=== PATIENT | male | born 2005 | race Caucasian/White ===

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

== ENCOUNTER → 2023-05-07 12:40 | Outpatient (CLI) | payer OTHER, SELFPAY ==
--- NOTE | ~2023-05-07 | XR_ITS ---
XR finger 5th LT min 2V DATE: 05/07/2023 13:11 INDICATION: Injury TECHNIQUE: 4 views COMPARISON: None FINDINGS: Mild focal soft tissue swelling dorsally near the distal interphalangeal joint. There is alford ggestion of very subtle virtually nondisplaced and articular fracture of the dorsal base of the dista l phalanx, possibly recent. Recommend clinical correlation for point tenderness. Otherwise no fracture or dislocation, periosteal reaction or bone destruction is detected. IMPRESSION: Suspected subtle nondisplaced fracture of the dorsal base of the distal phalanx, possibly recent Reviewed, dictated and finalized at location A. IMPRESSION: Suspected subtle nondisplaced fracture of the dorsal base of the di stal phalanx, possibly recent
--- NOTE | ~2023-05-07 | XR_ITS ---
XR finger 4th LT min 2V DATE: 05/07/2023 13:12 INDICATION: Injury TECHNIQUE: 4 views COMPARISON: None FINDINGS: No fracture or dislocation, periosteal reaction or bone destruction. Joint spaces are prese rved. No erosive change. No radiopaque soft tissue foreign body or subcutaneous emphysema. IMPRESSION: Negative Reviewed, dictated and finalized at location A. IMPRESSION: Negative
== END ==
PROVIDERS: PCP Family Medicine; Visit Provider Family Medicine
DX: S69.90XA Unspecified injury of unspecified wrist, hand and finger(s), initial encounter (principal); X58.XXXA Exposure to other specified factors, initial encounter
CPT/HCPCS: 73140

== ENCOUNTER 2024-12-04 17:40 | Emergency (ER) | payer OTHER, SELFPAY ==
[2024-12-04 17:41] VITALS: BP 137/70; PULSE 56; RESP 16; TEMP 36.7; O2SAT 100
--- OUTSIDE RECORDS SUMMARY | 2024-12-04 17:42 | XMS_ITS | Clinical Summary ---
Author Organization [facility] Address [address] [place] [address] Care Team Providers Care Manager Fixed Income Name Role Phone Mic Parry MD Primary Care Provider [phone] Source Comments [facility],non-owned Affiliates and Associated Physician Practices is amultiple site organization consisting of ambulatory clinics and hospital sitesin [place], [place], [place] and [place]. This disclosure is being madepursuant to the Care Everywhere program and may not contain all information available regarding this patient. Last updated 18.[facility] Allergies Active Allergy Reactions Criticality Noted Date Comments Penicillins Urticaria Medium 02/20/2017 Medications * Be aware that medications may not be up to date on this document. Alwaysverify current medications with the patient. cetirizine (ZYRTEC) 10 MG tablet Take 10 mg by mouth once daily Active omeprazole (PRILOSEC) 10 MG capsule Take 10 mg by mouth daily before breakfast Active ibuprofen (MOTRIN) 400 MG tablet Take 1 tablet by mouth every 6 hours as needed for Pain 20 tablet 8 Active cyproheptadine (PERIACTIN) 4 MG tablet Take 1 tablet by mouth at bedtime 30 tablet 2 9 Active Immunizations Immunization Administration Dates Next Due INFLUENZA VACCINE, QUADR. 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 Gender Identity Not on file Sexual Orientation Not on file Last Filed Vital Signs Vital Sign Reading Time Taken Comments Blood Pressure 108/62 05/02/2018 10:17 AM CDT Pulse 64 05/02/2018 10:17 AM CDT Temperature 36.6 C (97.9 F) 05/02/2018 10:17 AM CDT Respiratory Rate 16 05/02/2018 10:17 AM CDT Oxygen Saturation 96% 02/11/2018 2:25 PM CDT Inhaled Oxygen Concentration - - Weight 67.3 kg (148 lb 5.9 oz) 05/02/2018 10:17 AM CDT Height 178.5 cm (5' 10.28 ) 05/02/2018 10:17 AM CDT Body Mass Index 21.12 05/02/2018 10:17 AM CDT Plan of Treatment Health Maintenance Due Date Last Done Comments HIV SCREENING 2018 HPV VACCINE (1 - Male 3-dose series) 2018 MENINGOCOCCAL (Group B) VACC INE SHARED DECISION-MAKING (1 of 2 - Standard) 2019 HEPATITIS C SCREENING 09/10/2021 DTAP/TDAP/TD VACCINES (1 - Tdap) 2022 HEPATITIS B VACCINE (1 of 3 - 19+ 3-dose series) 2022 COVID-19 VACCINE (1 - 2023-2 5 season) 2024 DEPRESSION SCREENING 08/17/2024 INFLUENZA VACCINE (Season Ended) 2025 07/02/20 17 ZOSTER VACCINE (1 of 2) 2053 HIB VACCINE Aged Out No longer eligi ble based on patient's age to complete this topic MENINGOCOCCAL GROUPS A/C/Y/W VACCINE Aged Out No longer eligible b ased on patient's age to complete this topic PNEUMOCOCCAL VACCINE Aged Out No long er eligible based on patient's age to complete this topic Insurance AETNA AETNA AETNA AETNA Care Teams Manager Fixed Income Relationship Specialty Start Date End Date Mic Parry MD PCP - General Family Medicine 02/20/17
--- OUTSIDE RECORDS SUMMARY | 2024-12-04 17:42 | XMS_ITS | Encounter Summary ---
Author Organization [facility] Address [address] [place] [address] Care Team Providers Care Filling Station Equipment Mechanic Name Role Phone Mic Parry MD Primary Care Provider [phone] Encounter Details Date Type Department Care Team (Late Contact [facility]) Description 02/03/2024 Lab Requisition [facility] - DermPath Lab [address] [place] [address] Cassandra Sanders MD [address] 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 Answer Date of Assessment Author No 02/11/2018 2:27 PM Jackie Escobedo RN * Is person blind or have serious difficulty seeing? Answer Date of Assessment Author No 02/11/2018 2:27 PM Jackie Escobedo RN * Does person have serious difficulty walking/climbing stairs? Answer Date of Assessment Author No 02/11/2018 2:27 PM Jackie Escobedo RN * Does person have difficulty dressing/bathing? Answer Date of Assessment Author No 02/11/2018 2:27 PM CDT Jackie Boone RN * Does person have difficulty doing errands alone? Answer Date of Assessment Author No 02/11/2018 2:27 PM CDT Jackie Boone RN documented as of this encounter Mental Status * Does person have difficulty concentrating/remembering/making decisions? Answer Entry Date Author No 02/11/2018 2:27 PM CDT Jackie Boone RN documented in this encounter Plan of Treatment Not on file documented as of this encounter Procedures Procedure Name Priority Date/Time Associated Diagnosis Comments DERMATOPATHOLOGY Routine 02/03/2024 11:0 1 AM CDT documented in this encounter Results * DERMATOPATHOLOGY (02/03/2024 11:01 AM CDT) Case Report Dermatopathology Report Case: [id number] Authorizing Provider: Cassandra Sanders MD Collected: 02/03/2024 11:01 AM Ordering Location: [facility] - Received: 02/03/2024 03:46 PM DermPath Lab Pathologist: Sofi Onofre MD Specimen: Skin, right neck 4 2:06 PM T DERMATOPATHOLOGY LABORATORY Final Diagnosis Specimen A. 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 The specimen consists of a 14x5x7,87k2i95 mm piece of skin. The specimen is serially sectioned and a electronics parts sales representative section is submitted in cassette 1. Jar 1. 4 2:06 PM CDT DERMATOPATHOLOGY LABORATORY Microscopic Description Specimen A. SKIN, right neck: Aggregates of basaloid (matrical) and shadow cells are surrounded by fibrosis and granulomatous inflammation. 4 2:06 PM CDT DERMATOPATHOLOGY LABORATORY Disclaimer An external and internal positive and negative controls are appropriate for the histochemical, immunohistochemical and immunofluorescence stain(s) in this case (if any), except where stated explicitly. The performance characteristics of the stain(s) cited in this report were developed and its performance characteristic determined by the Dermatopathology Laboratory at [facility], directed by Dr. Daniel Whitley. These tests need not be, and therefore are not, approved by the [place] Food and Drug Administration. The tests are used for clinical purposes. Billing Codes Specimen Charges Stain Charges 02226 1 4 2:06 PM CDT DERMATOPATHOLOGY LABORATORY Embedded Images 4 2:06 PM CDT DERMATOPATHOLOGY LABORATORY Pathology/Cytolo gy TISSUE SPECIMEN FROM SKIN / Unknown 02/03/2024 11:01 AM CDT 02/03/2024 3:46 PM CDT Cassandra Sanders MD LAB - PATHOLOGY/CYTOLOGY ORD ERABLES Final Result DERMATOPATHOLOGY LABORATORY [facility] - Department of Dermatology [facility] Special[facility] Medicine [address] [place] [address], [address] [phone] documented in this encounter Visit Diagnoses Not on filedocumented in this encounter Care Teams Filling Station Equipment Mechanic Relationship Specialty Start Date End Date Mic Parry MD PCP - General Family Medicine 02/20/17 documented as of this encounter
--- NOTE | 2024-12-04 18:14 | ED_ITS ---
HPI - General Adult General Chief complaint: Abdominal Pain Stated complaint: abd cramping Time Seen by Provider: 12/04/24 17:54 History of Present Illness HPI narrative: 19-year-old male presenting to the emergency department for evaluation for increased left upper quadrant abdominal pain secondary to having some alcohol last night. Patient does have a history of gastric issues which mother states he has had extensive workup previously. Patient states he does not take omeprazole or any gastric medications daily. Patient does admit to having at least 3 beers last night. Patient reports he has been having nausea vomiting and worsening upper abdominal pain. Patient denies any prior abdominal surgeries. Related Data Home Medications ?Medication ?Instructions ?Recorded ?Confirmed ?Last Taken ?Type Saccharomyces boulardii 250 mg 5,000 mmu cells PO DAILY 08/29/22 11/10/24 Unknown History capsule (Daily Probiotic (S. boulardii)) cholecalciferol (vitamin D3) 25 25 mcg PO DAILY 08/29/22 11/10/24 Unknown History mcg (1,000 unit) capsule magnesium 200 mg tablet 200 mg PO DAILY 08/29/22 11/10/24 Unknown History multivitamin 1 tablet PO DAILY 08/29/22 11/10/24 Unknown History ketoconazole 2 % topical cream applic topical 11/10/24 11/10/24 Unknown History Allergies Allergy/AdvReac Type Severity Reaction Status Date / Time Penicillins Allergy Intermediate Rash Verified 12/04/24 18:01 Review of Systems 2 Review of Systems: All systems reviewed & are unremarkable except as noted in HPI and below PMFSH Past Medical History Medical History Major depressive disorder, recurrent, in partial remission Patient denies medical problems Surgical History Surgical History [place] teeth removed summer 2021 Social History Social History Smoking status: Never smoker Alcohol intake: never Substance use: current Substance use type: marijuana Last use: Not very often Do You Feel Safe in your Home?: Yes Lack of Transportation: No Lack of Food: Never True Current Housing: I Have Housing Concerned About Future Housing: No Living arrangements: with family Occupation/Education: student Gender identity (if verbalized by the patient): Male Sexual Orientation (if Verbalized by the Patient): Straight or Heterosexual Exam 2 Narrative: APPEARANCE: Uncomfortable appearing, diaphoretic HEAD: normocephalic, atraumatic. EYES: PERRLA/EOMI, conjunctivae clear. NOSE: Normal no drainage EARS:TMS clear with good light reflex. THROAT: Pharynx clear, no exudate. NECK: Supple. No adenopathy, no masses. RESPIRATORY: Airway patent, respirations nonlabored. Clear to auscultation bilaterally, no rales, rhonchi, wheezing. CARDIOVASCULAR: Regular rate and rhythm without murmurs rubs or gallops. ABDOMINAL: Left upper quadrant abdominal pain MUSCULOSKELETAL: Moves all extremities. Strength/ROM intact, No edema, No calf tenderness. NEURO: Alert. Cranial nerves II through XII intact. Good gait. Good coordination SKIN: Warm, dry. Normal Color Course Vital Signs Vital signs: Vital Signs Temperature 98.1 F 12/04/24 17:41 Pulse Rate 56 L 12/04/24 17:41 Respiratory Rate 16 12/04/24 17:41 Blood Pressure 137/70 12/04/24 17:41 Pulse Oximetry 100 12/04/24 17:41 Oxygen Delivery Room Air 12/04/24 17:41 Temperature 98.1 F 12/04/24 17:41 Pulse Rate 57 L 12/04/24 19:33 Respiratory Rate 17 12/04/24 19:33 Blood Pressure 111/64 12/04/24 19:33 Pulse Oximetry 100 12/04/24 19:33 Oxygen Delivery Room Air 12/04/24 17:[address] [facility] Narrative Medical decision making narrative: 19-year-old male presents emergency department for evaluation for left upper quadrant abdominal pain. Patient was treated with IV fluid radiate and Protonix along with a GI cocktail and IV fluids. Patient had no significant lab abnormalities. Patient did feel significantly improved with treatment. Patient family are updated on the results of the workup and plan for treatment for home. All questions concerns were addressed. Patient was started on omeprazole at home and instructed to avoid NSAIDs alcohol and to try Maalox as needed for intermittent left lower quadrant abdominal pain. Differential Diagnosis Differential Diagnosis: Colitis, diverticulitis, gastritis, ulcer Vital Signs Vital Signs: Vital Signs Temperature 98.1 F 12/04/24 17:41 Pulse Rate 56 L 12/04/24 17:41 Respiratory Rate 16 12/04/24 17:41 Blood Pressure 137/70 12/04/24 17:41 Pulse Oximetry 100 12/04/24 17:41 Oxygen Delivery Room Air 12/04/24 17:41 Temperature 98.1 F 12/04/24 17:41 Pulse Rate 57 L 12/04/24 19:33 Respiratory Rate 17 12/04/24 19:33 Blood Pressure 111/64 12/04/24 19:33 Pulse Oximetry 100 12/04/24 19:33 Oxygen Delivery Room Air 12/04/24 17:41 Lab Data Lab results reviewed: Yes I reviewed the patient's lab results. 12/04/24 18:07 12/04/24 18:07 Labs: Lab Results 12/04/24 12/04/24 Range/Units 18:07 18:15 WBC 7.0 (4.5-10.0) K/mm3 RBC 5.08 (4.6-6.20) M/mm3 Hgb 15.9 (14.0-18.0) g/dL Hct 46.6 (42.0-52.0) % MCV 91.7 (80-100) fl MCH 31.3 (26-34) pg MCHC 34.1 (32-36) g/dl RDW 11.7 (11.5-14.5) % Plt Count 342 (150-375) k/mm3 MPV 8.7 (7.4-10.4) fl Immature Gran % (Auto) 0.3 (0-0.5) % Neut % (Auto) 53.5 (45.5-73.1) % Lymph % (Auto) 36.3 (18.3-44.2) % [place] % (Auto) 7.6 (2.6-8.5) % Eos % (Auto) 1.6 (0-4.4) % Baso % (Auto) 0.7 (0.2-1.2) % Lymph # (Auto) 2.54 (0.9-3.2) K/mm3 [place] # (Auto) 0.5 (0.1-0.6) K/mm3 Eos # (Auto) 0.1 (0-0.3) K/mm3 Baso # (Auto) 0.1 (0.0-0.1) K/mm3 Abs Immat Gran (auto) 0.02 (0.00-0.031) K/mm3 Absolute Neuts (auto) 3.7 (1.3-6.7) K/mm3 Absolute Nucleated RBC 0.000 (0.0-0.012) K/mm3 Nucleated RBC % 0.0 (0.0-0.2) % Sodium 141 (137-145) mmol/L Potassium 3.9 (3.4-5.0) mmol/L Chloride 104 (98-107) mmol/L Carbon Dioxide 28 (22-30) mmol/L Anion Gap 9 (4-12) mmol/L BUN 17 (9-20) mg/dL Creatinine 1.07 (0.7-1.3) mg/dL Estim Creat Clear Calc 106 ml/min Estimated GFR > 60 (59 - ) Glucose 92 (65-110) mg/dL Calcium 9.1 (8.4-10.2) mg/dL Total Bilirubin 1.0 (0.2-1.3) mg/dL AST 48 (17-59) U/L ALT 50 (6-50) U/L Alkaline Phosphatase 82 (38-126) U/L Total Protein 7.0 (6.3-8.2) g/dL Albumin 4.7 (3.5-5.1) g/dL Lipase 68 (23-300) U/L Urine Color Yellow (Yellow) Urine Appearance Clear (Clear) Urine pH 5.5 (5.0-9.0) Ur Specific [place] 1.027 (1.001-1.035) Urine Protein Negative (Negative) mg/dL Urine Glucose (UA) Negative (Negative) mg/dL Urine Ketones Trace H (Negative) mg/dL Ur Blood (Man) Negative (Negative) Urine Nitrate Negative (Negative) Urine Bilirubin Negative (Negative) Urine Urobilinogen 0.2 (<2.0) mg/dL Leukocyte Esterase Rfl Negative (Negative) ARLEN/UL Discharge Plan Discharge Clinical Impression: Gastritis Patient Disposition: Home Condition: Stable Instructions: Antibiotic Form, Clear Liquid Diet (ED), Diet for Stomach Ulcers and Gastritis (ED) Additional Instructions: Avoid alcohol and NSAIDs. Clear liquid diet for the next 3-5 days. Follow a bland diet afterwards. Omeprazole as directed for the next 14 days. Maalox as needed for intermittent upper abdominal pain. Have close follow-up with GI. If you have any worsening symptoms then please call or return to the emergency department. Patient Language: Bol[place]ian Prescriptions: New omeprazole 20 mg capsule,delayed release(DR/EC) 20 mg PO DAILY 14 Days Qty: 14 0RF ondansetron 4 mg tablet,disintegrating 4 mg PO Q8H PRN (Reason: nausea and vomiting) Qty: 14 0RF No Action multivitamin Tablet 1 tablet PO DAILY magnesium 200 mg tablet 200 mg PO DAILY cholecalciferol (vitamin D3) 25 mcg (1,000 unit) capsule 25 mcg PO DAILY Saccharomyces boulardii [Daily Probiotic (S. boulardii)] 250 mg capsule 5,000 mmu cells PO DAILY albuterol sulfate 90 mcg/actuation HFA aerosol inhaler 1 inh inhalation Q4H PRN (Reason: shortness of breath or wheezing) Qty: 6.7 0RF ketoconazole 2 % cream topical sertraline 50 mg tablet 50 mg PO DAILY Qty: 90 1RF bupropion HCl 150 mg tablet extended release 24 hr 150 mg PO QAM Qty: 30 1RF Follow-up/Referrals: Mic Parry MD [Primary Care Provider] - Aniceto Harding MD [Physician] -
[2024-12-04] MEDS: BELLADONNA ALK/PHENOB ELIX 10 ML, MAG HYDROX/ALUMINUM HYD/SIMETH 30 ML, LIDOCAINE 2% VI... PO (18:16)
[2024-12-04] MEDS: FAMOTIDINE 20 MG/2 ML VIAL IV PUSH (18:17)
[2024-12-04] MEDS: ONDANSETRON INJ 4 MG/2 ML VIAL IV PUSH (18:17)
[2024-12-04] MEDS: PANTOPRAZOLE SODIUM IV 40 MG VIAL IV PUSH (18:17)
[2024-12-04] MEDS: LACTATED RINGERS 1,000 ML 999 ML IV CONT (18:18)
[2024-12-04 18:20] LABS: Basophils Absolute Auto 0.1 K/mm3 (0.0-0.1); Basophils Percent Auto 0.7 % (0.2-1.2); Eosinophils Absolute Auto 0.1 K/mm3 (0-0.3); Eosinophils Percent Auto 1.6 % (0-4.4); Hematocrit 46.6 % (42.0-52.0); Hemoglobin 15.9 g/dL (14.0-18.0); Immature Granulocyte Absolute 0.02 K/mm3 (0.00-0.031); Immature Granulocyte Percent A 0.3 % (0-0.5); Lymphocytes Absolute Auto 2.54 K/mm3 (0.9-3.2); Lymphocytes Percent Auto 36.3 % (18.3-44.2); Mean Corpuscular HGB Conc 34.1 g/dl (32-36); Mean Corpuscular Hemoglobin 31.3 pg (26-34); Mean Corpuscular Volume 91.7 fl (80-100); Mean Platelet Volume 8.7 fl (7.4-10.4); Monocytes Absolute Auto 0.5 K/mm3 (0.1-0.6); Monocytes Percent Auto 7.6 % (2.6-8.5); Neutrophils Absolute Auto 3.7 K/mm3 (1.3-6.7); Neutrophils Percent Auto 53.5 % (45.5-73.1); Platelet Count Result 342 k/mm3 (150-375); Red Blood Count 5.08 M/mm3 (4.6-6.20); Red Cell Distribution Width 11.7 % (11.5-14.5)
--- OUTSIDE RECORDS SUMMARY | 2024-12-04 18:23 | XMS_ITS | Encounter Summary ---
Author Organization [facility] Address [address] [place] [address] Care Team Providers Care Painting Trades Worker Name Role Phone Mic Parry MD Primary Care Provider [phone] Encounter Details Date Type Department Care Team (Late Contact [facility]) Description 02/03/2024 Lab Requisition [facility] - DermPath Lab [address] [place] [address] Cassandra Sanders MD [address] [address] [place] [address] Social History Tobacco Use Types Packs/Day Years Used Date Smoking Tobacco: Never Smokeless Tobacco: Never Alcohol Use Standard Drinks/Week Comments No 0 (1 standard drink = 0.6 oz pur e alcohol) Sex and Gender Information Value Date Recorded Sex Assigned at Not on file 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 The specimen consists of a 14x5x7,[id number] mm piece of skin. The specimen is serially sectioned and a route service representative section is submitted in cassette 1. [...] characteristic determined by the Dermatopathology Laboratory at [facility], directed by Dr. Daniel Whitley. These tests need not be, and therefore are not, approved by the [place] Food and Drug Administration. The tests are used for clinical purposes. Billing Codes Specimen Charges Stain Charges 72678 1 4 2:06 PM CDT DERMATOPATHOLOGY LABORATORY Embedded Images 4 2:06 PM CDT DERMATOPATHOLOGY LABORATORY Pathology/Cytolo gy TISSUE SPECIMEN FROM SKIN / Unknown 02/03/2024 11:01 AM CDT 02/03/2024 3:46 PM CDT Cassandra Sanders MD LAB - PATHOLOGY/CYTOLOGY ORD ERABLES Final Result DERMATOPATHOLOGY LABORATORY [facility] - Department of Dermatology [facility] Special[facility] [address] [place] [address], [address] [phone] documented in this encounter Visit Diagnoses Not on filedocumented in this encounter Care Teams Painting Trades Worker Relationship Specialty Start Date End Date Mic Parry MD PCP - General Family Medicine 02/20/17 documented as of this encounter
--- OUTSIDE RECORDS SUMMARY | 2024-12-04 18:23 | XMS_ITS | Clinical Summary ---
Author Organization [facility] Address [address] [place] [address] Care Team Providers Care Supervisor [employer] Name Role Phone Mic Parry MD Primary Care Provider [phone] Source Comments [facility],non-owned Affiliates and Associated Physician Practices is amultiple site organization consisting of ambulatory clinics and hospital sitesin [place], [place], [place] and [place]. This disclosure is being madepursuant to the Care Everywhere program and may not contain all information available regarding this patient. Last updated 18.[facility] Allergies Active Allergy Reactions Criticality Noted Date [...] on file Legal Sex Male 6:36 AM [employer] Gender Identity Not on file Sexual Orientation [...] Insurance AETNA AETNA AETNA AETNA Care Teams Supervisor [employer] Relationship Specialty Start Date End Date Mic Parry MD PCP - General Family Medicine 02/20/17
[2024-12-04 18:34] LABS: Alanine Aminotransferase 50 U/L (6-50); Albumin Level 4.7 g/dL (3.5-5.1); Alkaline Phosphatase 82 U/L (38-126); Anion Gap 9 mmol/L (4-12); Aspartate Amino Transferase 48 U/L (17-59); Blood Urea Nitrogen 17 mg/dL (9-20); Calcium 9.1 mg/dL (8.4-10.2); Carbon Dioxide 28 mmol/L (22-30); Chloride 104 mmol/L (98-107); Estimated CRCL calculation 106 ml/min; Estimated Glomerular Filt Rate > 60; Glucose 92 mg/dL (65-110); Lipase 68 U/L (23-300); Potassium 3.9 mmol/L (3.4-5.0); Sodium 141 mmol/L (137-145)
[2024-12-04 19:07] LABS: Add Urine Microscopic? NO; Appearance Urine Clear (Clear); Bilirubin Urine Negative (Negative); Blood Urine Negative (Negative); Color Urine Yellow (Yellow); Glucose Urine UA Negative (Negative); Ketones Urine Trace mg/dL (Negative); Leukocyte Esterase Ur Negative LEU/UL (Negative); Nitrate Urine Negative (Negative); Protein Urine Negative (Negative); Specific Grav Ur 1.027 (1.001-1.035); Urobilinogen Urine 0.2 mg/dL (<2.0); pH Urine 5.5 (5.0-9.0)
--- NOTE | 2024-12-04 19:11 | PC.NURSE ---
Report received from SILVANO López. Assumed care of patient at this time.
[2024-12-04 19:33] VITALS: BP 111/64; PULSE 57; RESP 17; O2SAT 100
== END 2024-12-04 20:56 | disposition home or self-care (01) ==
PROVIDERS: Physician Assistant; Emergency Provider Emergency Medicine; PCP Family Medicine
DX: K29.70 Gastritis, unspecified, without bleeding (principal)
CPT/HCPCS: 36415; 80053; 81003; 83690; 85025; 96361; 96374; 96375; 99284; A9270; J2405; J2470; J7120